=== PATIENT | female | born 1975 | race Caucasian/White ===

== ENCOUNTER 2018-04-18 11:49 | Emergency (ER) | payer MEDICARE ==
[2018-04-18] MEDS ORDERED: Ondansetron ODT 4 MG TAB ONE (12:15)
== END 2018-04-18 12:46 | disposition home or self-care (01) ==
LOC: BURERS 11:49
DX: A08.4 Viral intestinal infection, unspecified (principal); J06.9 Acute upper respiratory infection, unspecified; F17.210 Nicotine dependence, cigarettes, uncomplicated; J45.909 Unspecified asthma, uncomplicated
CPT/HCPCS: 87804; 99284; Q0162

== ENCOUNTER 2018-04-20 18:51 | Emergency (ER) | payer MEDICARE ==
[2018-04-20] MEDS ORDERED: predniSONE 20 MG TAB ONE (19:11)
[2018-04-20] MEDS ORDERED: predniSONE 20 MG TAB PO SCH (19:30)
[2018-04-20] MEDS ORDERED: Azithromycin 250 MG TAB ONE (19:46)
--- NOTE | 2018-04-20 22:25 | RAD ---
CHEST TWO VIEWS: 04/20/18 No prior films were available for comparison. The heart is normal in size and the lungs are clear. There is no sign of pneumonia or effusion. The m ediastinum appears normal and the trachea is midline. IMPRESSION: No acute thoracic finding. POS: HOME
== END 2018-04-20 19:57 | disposition home or self-care (01) ==
LOC: BURERS 18:51
DX: J20.9 Acute bronchitis, unspecified (principal); J45.909 Unspecified asthma, uncomplicated; F17.210 Nicotine dependence, cigarettes, uncomplicated
CPT/HCPCS: 71046; 94640; J7506; J7620